=== PATIENT | male | born 1975 | race Caucasian/White ===

== ENCOUNTER 2018-05-20 09:06 | Emergency (ER) | payer MEDICAID, SELFPAY ==
[2018-05-20 09:07] VITALS: BP 152/84; PULSE 67; RESP 16; TEMP 36.9; O2SAT 100; BMI 33.2
--- NOTE | 2018-05-20 09:14 | RAD_ITS ---
STUDY: X-RAY - LUMBAR SPINE REASON FOR EXAM: Male, 43 years old. TECHNIQUE: 3 view(s) of the lumbar spine were obtained. COMPARISON: Comparison is made with prior study of November 22, 2010. FINDINGS: Normal lumbar lordosis. There is no substantial scoliosis. Grade 2 anterior listhesis of L5 on S1 with spondylolysis of the pars interarticularis of the L5 vertebrae. Anterior spondylosis and disc space narrowing at the L1-L2 and L5-S1 levels. Normal disc space heights. The soft tissue structures are unremarkable. RAD/Lumbar Spine 2 or 3 Views IMPRESSION: Degenerative changes of the spine, as detailed above. Grade 2 anterolisthesis of L5 on S1 with spondylolysis of the pars interarticularis of the L5 vertebrae. Electronically Signed: Melvin Sanchez MD at 9:33 EDT Tel [phone], Service support ,
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
[2018-05-20 10:00] VITALS: BP 116/74; PULSE 81; RESP 15; O2SAT 98
== END 2018-05-20 10:01 | disposition home or self-care (01) ==
LOC: ED 09:51
PROVIDERS: Emergency Provider Emergency Medicine; Family Provider Nurse Practitioner Family; PCP Nurse Practitioner Family
DX: S39.012A Strain of muscle, fascia and tendon of lower back, initial encounter (principal); V43.52XA Car driver injured in collision with other type car in traffic accident, initial encounter; Y93.89 Activity, other specified; Z72.0 Tobacco use
CPT/HCPCS: 72100; 99282

== ENCOUNTER 2019-03-23 14:47 | Emergency (ER) | payer MEDICAID, SELFPAY ==
[2019-03-23 14:48] VITALS: BP 149/98; PULSE 65; RESP 16; TEMP 36.6; O2SAT 98; BMI 33.5
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
[2019-03-23] MEDS: cycloBENZAPRine HCl 10 MG Tablet PO (15:34)
[2019-03-23] MEDS: HYDROcodone Bitartrate/Apap 5/325 Tablet PO (15:34)
== END 2019-03-23 15:36 | disposition home or self-care (01) ==
PROVIDERS: Emergency Provider Emergency Medicine; Family Provider Family Medicine; PCP Family Medicine
DX: S56.912A Strain of unspecified muscles, fascia and tendons at forearm level, left arm, initial encounter (principal); S46.212A Strain of muscle, fascia and tendon of other parts of biceps, left arm, initial encounter; X58.XXXA Exposure to other specified factors, initial encounter; Y93.17 Activity, water skiing and wake boarding; Y92.9 Unspecified place or not applicable; Y99.8 Other external cause status; M62.838 Other muscle spasm
CPT/HCPCS: 99283

== ENCOUNTER 2019-09-06 18:26 | Emergency (ER) | payer MEDICAID, SELFPAY ==
[2019-09-06 18:27] VITALS: BP 153/102; PULSE 81; RESP 17; TEMP 36.9; O2SAT 100; BMI 33.7
--- NOTE | 2019-09-06 18:49 | ED.DCSUM_ITS ---
- ER Visit Summary Date of Service: 09/06/19 Chief Complaint: Right upper molar dental pain History of Present Illness: The patient is a 44 M prior root canal 2 months ago. His last days are getting pain in his right upper molar. This happened before and it became infected. Mild facial swelling. No other complaints. No trouble swallowing or breathing. Physical Examination: Middle-aged male no acute distress vital signs stable afebrile. H EENT exam right TM and canal unremarkable. No significant facial swelling. Right upper molar has had dental work done. There is currently no significant swelling or periapical abscess. No trismus. No trouble swallowing or breathing. No drooling. Neck nontender no lymphadenopathy. Lungs clear to auscultation. Heart regular rhythm no murmur. Otherwise exam unremarkable. Test Results: None Emergency Department Course and Treatment: Right upper molar dental pain. He is to use ibuprofen for pain. Given a dose of Pen-Vee K here. Treatment Plan: Pen-Vee K 4 times a day. Ibuprofen for pain. Follow-up with his dentist on Sunday. Disposition: Discharge Impression: Right upper molar pain secondary to infection Status post root canal This note was generated with [employer] dictation software. It may contain incorrect words, spelling, and punctuation that were not noted in review of the chart p rior to signing ED Disposition - Plan for ED Patient: Referrals: Bernardo Mercado MD [Primary Care Provider] -
--- NOTE | 2019-09-06 18:51 | ED.DEP ---
ED Disposition - Plan for ED Patient: Disposition: Home or Assisted Living Instructions: Dental Pain Prescriptions: Penicillin Vk [Pen-Vee K , V-Cillin K] 500 mg PO 4X/DAY #40 tab Prescription Printed Referrals: Bernardo Mercado MD [Primary Care Provider] - As Needed Additional Instructions: Follow up with your dentist on Sunday. Ice to your jaw. Ibuprofen, Motrin or Advil for pain. May also use Tylenol. Pen-Vee K 4 times a day.
[2019-09-06] MEDS: Penicillin Vk 250 MG Tablet 500 MG PO (19:00)
== END 2019-09-06 19:01 | disposition home or self-care (01) ==
PROVIDERS: Emergency Provider Emergency Medicine; Family Provider Family Medicine; PCP Family Medicine
DX: K04.7 Periapical abscess without sinus (principal); Z98.818 Other dental procedure status; Z72.0 Tobacco use
CPT/HCPCS: 99282